=== PATIENT | female | born 1955 | race Caucasian/White ===

== ENCOUNTER 2017-10-16 09:27 | Outpatient (CLI) | payer BC | END 2017-10-16 09:28 | disposition home or self-care (01) | LOC: BICMAMMO 09:27 | PROVIDERS: ATTEND Internal Medicine | DX: Z12.31 Encounter for screening mammogram for malignant neoplasm of breast (principal); Z13.820 Encounter for screening for osteoporosis; M85.88 Other specified disorders of bone density and structure, other site; Z98.82 Breast implant status; Z80.3 Family history of malignant neoplasm of breast | CPT/HCPCS: 77063; 77067; 77080 ==

== ENCOUNTER 2019-01-07 08:12 | Outpatient (CLI) | payer BC ==
--- NOTE | 2019-01-07 08:53 | MMO ---
Bilateral MAMMO Bilat Screen [facility]. CLINICAL HISTORY: Patient is 63 years old and is seen for screening. The patient has no family history of breast cancer. The patient has no personal history of cancer. VIEWS: The views performed were: bilateral craniocaudal with tomosynthesis and bilateral mediolateral oblique with tomosynthesis. This study has been interpreted with the assistance of computer-aided detection. MAMMOGRAM FINDINGS: There are scattered fibroglandular densities. Finding 1: There are stable benign appearing calcifications seen in both breasts. Finding 2: Normal implants are present. There are no suspicious masses, suspicious calcifications, or new areas of architectural distortion. IMPRESSION: THERE IS NO MAMMOGRAPHIC EVIDENCE OF MALIGNANCY. A ROUTINE FOLLOW-UP MAMMOGRAM IN 1 YEAR IS RECOMMENDED. THE RESULTS OF THIS EXAM WERE SENT TO THE PATIENT. ACR BI-RADS Category 2 - Benign finding MAMMOGRAPHY NOTE: 1. A negative mammogram report should not delay a biopsy if a dominant of clinically suspicious mass is present. 2. Approximately 10% to 15% of breast cancers are not detected by mammography. 3. Adenosis and dense breasts may obscure an underlying neoplasm. Reported by: JACOBO CORTEZ MD Electonically Signed: [id number]
== END 2019-01-07 08:13 | disposition home or self-care (01) ==
LOC: BICMAMMO 08:12
PROVIDERS: ATTEND Internal Medicine
DX: Z12.31 Encounter for screening mammogram for malignant neoplasm of breast (principal)
CPT/HCPCS: 77063; 77067

== ENCOUNTER 2019-08-08 06:35 | Outpatient (CLI) | payer BC, OTHER ==
[2019-08-08 11:31] VITALS: BMI 21.9
[2019-08-08 14:01] LABS: Hemoglobin 14.3 g/dL (12.0-16.0); Mean Corpuscular HGB CONC 32.4 g/dL (32.0-36.0); Mean Corpuscular Hemoglobin 29.1 pg (27.0-31.0); Mean Corpuscular Volume 89.7 fL (78.0-98.0); Mean Platelet Volume 8.4 fL (7.4-10.4); Platelet Count 214 thou/uL (130-400); RBC Distribution Width 11.4 % (11.5-14.5); White Blood Cell (WBC) Count 6.5 thou/uL (4.8-10.8)
== END 2019-08-08 06:36 | disposition home or self-care (01) ==
LOC: LABBT 06:35
PROVIDERS: ATTEND Obstetrics & Gynecology
DX: Z01.812 Encounter for preprocedural laboratory examination (principal); N81.10 Cystocele, unspecified; N81.6 Rectocele
CPT/HCPCS: 85027

== ENCOUNTER 2019-08-11 05:54 | Observation (INO) | payer BC, OTHER ==
[2019-08-08 17:52] LABS: SARS-CoV-2 MS2 Positive; SARS-CoV-2 N Gene Negative; SARS-CoV-2 S Gene Negative; SARS-CoV-2 orf1ab Negative
[2019-08-11] MEDS ORDERED: Lidocaine 1% w/Epinephrine 1:100K 20 ML VIAL ONE (06:22)
--- NOTE | 2019-08-11 06:22 | HP ---
HISTORY OF PRESENT ILLNESS: Ms. Whitlock is a 64-year-old white female with previous hysterectomy, who has been having increasing symptoms of pelvic prolapse. She is noticing vaginal bulging which worsens with prolonged standing and also some difficulty emptying her urine necessitating forward positioning. She is noted to have significant cystocele and rectocele and wanted to proceed with surgical correction. She denies any stress incontinence related issues. PAST MEDICAL HISTORY AND PAST SURGICAL HISTORY: She has had breast augmentation and hysterectomy with ovaries remaining in situ. FAMILY HISTORY: Breast cancer in mother, and leukemia. Father had heart disease and diabetes. CURRENT MEDICATIONS: None. SOCIAL HISTORY: Nonsmoker. No excessive alcohol use. OB HISTORY: She had 2 spontaneous vaginal deliveries. ALLERGIES: SHE HAS NO KNOWN DRUG ALLERGIES. PHYSICAL EXAMINATION: VITAL SIGNS: Height 5 feet 4 inches, weight 129, BMI 22. Blood pressure 120/72, pulse 80 and regular, O2 saturation on room air was 96%. HEENT: Within normal limits. CHEST: Clear to auscultation. HEART: Regular rate and rhythm. S1 and S2 heart sounds. No murmurs, rubs, or gallops. ABDOMEN: Soft, nontender, and nondistended with no palpable masses. PELVIC: No vulvar or vaginal lesions noted. She does have grade 2 cystocele and grade 2 rectocele. The upper vaginal vault appears adequately supported. ASSESSMENT: A 64-year-old white female with grade 2 cystocele and rectocele concurrently and incomplete uterovaginal prolapse. PLAN: Plan is to proceed with anterior and posterior repair scheduled for 08/11/2019. Risks and benefits of procedure were discussed in detail. She is set for surgery. Job ID: [id number]
[2019-08-11] MEDS ORDERED: Fentanyl 100 MCG/2 ML VIAL ONE ×2 (06:37→09:02)
[2019-08-11] MEDS ORDERED: Midazolam HCl 2 mg/2 ml Vial ONE (07:09)
[2019-08-11] MEDS ORDERED: Simethicone Chewable 80 MG TAB PO PRN (08:41)
[2019-08-11] MEDS ORDERED: Morphine 2 MG/ML SYRINGE SLOW IVP PRN (08:41)
[2019-08-11] MEDS ORDERED: diphenhydrAMINE 25 MG CAP PO PRN (08:41)
[2019-08-11] MEDS ORDERED: traMADol HCl 50 MG TAB PO PRN ×2 (08:41)
[2019-08-11] MEDS ORDERED: Ondansetron PF 4 MG/2 ML Vial IVP PRN (08:41)
[2019-08-11] MEDS ORDERED: Bisacodyl 10 MG SUPP PR PRN (08:41)
[2019-08-11] MEDS ORDERED: Promethazine HCl 25 MG/ML VIAL IM PRN (08:41)
[2019-08-11] MEDS ORDERED: Zolpidem Tartrate 5 MG TAB PO PRN (08:41)
[2019-08-11] MEDS ORDERED: Loratadine 10 MG TAB PO PRN ×2 (08:49→09:05)
[2019-08-11] MEDS ORDERED: Acetaminophen 500 MG TAB PO PRN ×2 (08:49→09:03)
[2019-08-11] MEDS ORDERED: [UNRECOGNIZED DRUG - MIXTURE] PO PRN (08:49)
[2019-08-11] MEDS ORDERED: [UNRECOGNIZED DRUG - OTHER] PO SCH (09:00)
[2019-08-11] MEDS ORDERED: Non-Formulary Item 1 EACH (Multivitamin/Iron/Folic Acid [Centrum Complete Multivitamin] 1 PO SCH (09:00)
[2019-08-11] MEDS ORDERED: VIT D3 PO SCH (09:00)
[2019-08-11] MEDS ORDERED: CALCIUM PHOSPHATE TRIB PO SCH (09:00)
[2019-08-11] MEDS ORDERED: Metamucil PACK PO PRN (09:07)
--- NOTE | 2019-08-11 10:10 | OP ---
DATE OF PROCEDURE: 08/11/2019 PREOPERATIVE DIAGNOSIS: A 64-year-old white female with prior hysterectomy with symptomatic grade 3 cystocele and grade 3 rectocele. POSTOPERATIVE DIAGNOSIS: A 64-year-old white female with prior hysterectomy with symptomatic grade 3 cystocele and grade 3 rectocele. PROCEDURE PERFORMED: Anterior-posterior repair. PATIENT ACCOUNTS MANAGER SURGEON: Kristal Buckner PA-C ANESTHESIA: General endotracheal. ESTIMATED BLOOD LOSS: Less than 25 mL. COMPLICATIONS: None. COUNTS: Correct x2. ANTIBIOTICS: 2 g Ancef. ON-CALL: To OR. FINDINGS: 1. Postoperatively, clear urine present in Schuster catheter. 2. Postprocedure rectal exam showed no evidence of any suture placement in the rectal mucosa. 3. She had some attenuated posterior vaginal and endopelvic fascia noted. DISPOSITION: To recovery room and then to the floor. DESCRIPTION OF PROCEDURE: The patient previously received informed consent in regard to surgery. She was taken back to the operating room, where she received a general endotracheal anesthetic agent without complications. She was placed in dorsal lithotomy position after general endotracheal intubation had been performed. She was prepped and draped in usual sterile fashion. Schuster catheter was placed. At this time, an exam under anesthesia showed the anterior cystocele. The vaginal cuff line was grasped with 2 Allis clamps. The anterior vaginal mucosa was then infiltrated with 1% lidocaine with epinephrine. An incision at the middle of the edge of the cuff was made and this was dissected up to approximately 1 cm from the urethral meatus under the mucosa. The cystocele was then dissected both sharply and bluntly reducing the cystocele defect. At this time, a 2-0 Vicryl suture was then utilized to close the cystocele defect with plication of the endopelvic fascia starting most approximately with [id number] sutures, plicating the endopelvic fascia, reducing the cystocele. This was carried out towards the cuff line. Once this had been completed, the excess vaginal mucosa was trimmed and the vaginal mucosa was closed with interrupted 2-0 Vicryl sutures incorporating some endopelvic fascia to rid the space. Hemostasis was confirmed. Attention was turned to the posterior repair. The vaginal mucosa at the 4 and 8 o'clock position of the vaginal introitus were grasped with 2 Allis clamps. The posterior vaginal mucosa was infiltrated with 1% lidocaine with epinephrine up to the cuff line. A posterior midline incision was made at the introitus with Metzenbaum scissors. The vaginal mucosa was then incised up to the cuff line and the edges of the vaginal mucosa were grasped by my entry level marketing assistant with Allis clamps to aid with retraction and countertraction. The endopelvic fascia was then dissected away from the vaginal mucosa reducing the rectocele defect. There appeared to be a very large endopelvic fascia tear mostly on the patient's right lateral pelvic vaginal wall. An additional glove was placed on my left hand and this enabled me to grasp the upper edge of the endopelvic fascia on the patient's right side and also the fascia. Another Allis clamp was placed on the edge on the patient's left side. The dirty glove was then removed. With exposure by aid of my entry level marketing assistant, was able to grasp the upper edge of the vaginal endopelvic fascia, plicating this with an interrupted suture of 0 Vicryl. I then worked my way from the most proximal cephalad to with the caudal entry of the introitus region and plicating the endopelvic fascia with 0 Vicryl sutures. The patient's right side of the endopelvic fascia was somewhat attenuated, but we were able to grasp this and close off the rectocele defect. Once this had been accomplished, additional sutures were placed working most caudally then backed cephalad to reinforce the suture line. Hemostasis was confirmed. At this time, another exam was performed and no evidence of any rectal mucosal sutures were noted. The dirty glove was removed. The excessive vaginal mucosa was trimmed. The vaginal mucosa was then plicated with interrupted [id number] sutures incorporating some endopelvic fascia starting most proximal working towards the introitus. Hemostasis was confirmed. We then packed the vaginal mucosa with a moistened Kerlix and the patient was awakened from anesthesia and transferred to recovery room in stable condition. Job ID: [id number]
[2019-08-11 10:36] VITALS: BMI 21.2
[2019-08-11] MEDS ORDERED: Ketorolac Tromethamine 30 MG/ML VIAL IVP SCH (12:00)
[2019-08-11] MEDS ORDERED: Ketorolac Tromethamine 30 MG/ML VIAL ONE (12:16)
[2019-08-11] MEDS ORDERED: Lidocaine 1% PF 5 ML VIAL ONE (12:16)
[2019-08-11] MEDS ORDERED: Ondansetron PF 4 MG/2 ML Vial ONE (12:16)
[2019-08-11] MEDS ORDERED: Dexamethasone 20 MG/5 ML VIAL ONE (12:16)
[2019-08-11] MEDS ORDERED: PROPOFOL 200 MG/20 ML VIAL ONE (12:16)
[2019-08-11] MEDS ORDERED: Ibuprofen 800 MG TAB PO SCH (14:00)
[2019-08-11] MEDS: Ketorolac Tromethamine 30 MG/ML VIAL IVP SCH ×2 (15:19→21:31)
[2019-08-11] MEDS: Ibuprofen 600 MG TAB PO SCH ×2 (17:46→21:40)
[2019-08-12] MEDS: Ibuprofen 600 MG TAB PO SCH (06:01)
[2019-08-12] MEDS: Ketorolac Tromethamine 30 MG/ML VIAL IVP SCH (06:46)
--- NOTE | 2019-08-12 07:44 | PDOC.EVN ---
Event Note - Event Note Event Note: S: Good pain control with oral ibuprofen. No nausea or vomiting. Schuster out. has not voided yet. O:AFVSS perineum intact/hemostatic. A/P post op day from A&P...Voiding trial. If does well, discharge today...
[2019-08-12] MEDS ORDERED: Calcium Carbonate 600 MG + Vit D TAB PO SCH (09:00)
[2019-08-12] MEDS ORDERED: Multivit, Therapeutic 1 TAB PO SCH (09:00)
[2019-08-12 11:35] VITALS: BP 95/50; TEMP 98.2
--- NOTE | 2019-08-13 03:17 | DIS ---
DATE OF ADMISSION: 08/11/2019 DATE OF DISCHARGE: 08/12/2019 DIAGNOSIS: Cystocele with rectocele. PROCEDURE PERFORMED: Anterior and posterior repair. SUMMARY OF HOSPITAL COURSE: Ms. Whitlock is a 64-year-old white female with prior hysterectomy and symptomatic pelvic prolapse with a grade 2 to 3 cystocele and rectocele. She underwent anterior and posterior repair on August 11, 2019. Postoperatively, the patient has done well. Vital signs remained stable. She has had good pain control with opee-[id number]-huxfaze ibuprofen and was ambulating and voiding without difficulty in the morning of postop day #1. She was discharged home and to follow up on August 26 as scheduled. She is to resume her maintenance medications for other chronic medical conditions. Job ID: [id number]
== END 2019-08-12 12:17 | disposition home or self-care (01) ==
LOC: SDC 05:54 → 3SE 08:36 → SDC 18:49 → 3SE 18:50
PROVIDERS: ADMIT Obstetrics & Gynecology; ATTEND Obstetrics & Gynecology
PROC: 0JQC0ZZ Repair Pelvic Region Subcutaneous Tissue and Fascia, Open Approach (ICD-10-PCS; principal; 2019-08-11)
PROC: 0JQC0ZZ Repair Pelvic Region Subcutaneous Tissue and Fascia, Open Approach (ICD-10-PCS; 2019-08-11)
DX: N81.10 Cystocele, unspecified (principal); N81.6 Rectocele; N81.89 Other female genital prolapse; Z90.710 Acquired absence of both cervix and uterus
CPT/HCPCS: 36415; 86850; 86900; 86901; 87635; 96372; 96374; 96375; G0378; J0690; J1100; J1885; J2001; J2250; J2270; J2405; J2550; J2704; J3010; U0003

== ENCOUNTER 2020-01-23 15:11 | Outpatient (CLI) | payer BC ==
--- NOTE | 2020-01-23 16:21 | MMO ---
Bilateral MAMMO Bilat Screen [facility]. CLINICAL HISTORY: Patient is 64 years old and is seen for screening. The patient has no family history of breast cancer. The patient has no personal history of cancer. The patient has a history of bilateral Implants in 1991. VIEWS: The views performed were: bilateral craniocaudal; bilateral mediolateral oblique; and bilateral Implant displaced with tomosynthesis. FILMS COMPARED: The present examination has been compared to prior imaging studies performed at [facility] on 07/30/2015, 09/21/2016, 10/16/2017 and 01/07/2019. This study has been interpreted with the assistance of computer-aided detection. MAMMOGRAM FINDINGS: There are scattered fibroglandular densities. Finding 1: There are stable benign appearing calcifications seen in both breasts. Finding 2: Normal implants are present. There are no suspicious masses, suspicious calcifications, or new areas of architectural distortion. IMPRESSION: THERE IS NO MAMMOGRAPHIC EVIDENCE OF MALIGNANCY. A ROUTINE FOLLOW-UP MAMMOGRAM IN 1 YEAR IS RECOMMENDED. THE RESULTS OF THIS EXAM WERE SENT TO THE PATIENT. ACR BI-RADS Category 2 - Benign finding MAMMOGRAPHY NOTE: 1. A negative mammogram report should not delay a biopsy if a dominant of clinically suspicious mass is present. 2. Approximately 10% to 15% of breast cancers are not detected by mammography. 3. Adenosis and dense breasts may obscure an underlying neoplasm. Reported by: STEVE OROSCO MD Electonically Signed: [id number]
== END 2020-01-23 15:12 | disposition home or self-care (01) ==
LOC: BICMAMMO 15:11
PROVIDERS: ATTEND Internal Medicine
DX: Z12.31 Encounter for screening mammogram for malignant neoplasm of breast (principal); Z98.82 Breast implant status
CPT/HCPCS: 77063; 77067

== ENCOUNTER 2021-03-15 14:54 | Outpatient (CLI) | payer BC | END 2021-03-15 14:55 | disposition home or self-care (01) | LOC: BICMAMMO 14:54 | PROVIDERS: ATTEND Internal Medicine | DX: Z12.31 Encounter for screening mammogram for malignant neoplasm of breast (principal); M81.0 Age-related osteoporosis without current pathological fracture; Z98.82 Breast implant status | CPT/HCPCS: 77063; 77067; 77080 ==

== ENCOUNTER 2021-10-07 07:58 | Outpatient (CLI) | payer BC | END 2021-10-07 07:59 | disposition home or self-care (01) | LOC: BICRAD 07:58 | PROVIDERS: ATTEND Internal Medicine Rheumatology | DX: M81.0 Age-related osteoporosis without current pathological fracture (principal); M47.27 Other spondylosis with radiculopathy, lumbosacral region; M54.31 Sciatica, right side; M47.816 Spondylosis without myelopathy or radiculopathy, lumbar region; M48.07 Spinal stenosis, lumbosacral region; M41.9 Scoliosis, unspecified | CPT/HCPCS: 72072; 72110 ==

== ENCOUNTER 2022-04-21 11:52 | Outpatient (CLI) | payer MEDICARE, OTHER | END 2022-04-21 11:53 | disposition home or self-care (01) | LOC: BICMAMMO 11:52 | PROVIDERS: ATTEND Internal Medicine | DX: Z12.31 Encounter for screening mammogram for malignant neoplasm of breast (principal); Z80.3 Family history of malignant neoplasm of breast; Z98.82 Breast implant status | CPT/HCPCS: 77063; 77067 ==

== ENCOUNTER 2022-12-19 13:38 | Outpatient (CLI) | payer MEDICARE, OTHER | END 2022-12-19 13:39 | disposition home or self-care (01) | LOC: BICMAMMO 13:38 | PROVIDERS: ATTEND Internal Medicine | DX: N63.20 Unspecified lump in the left breast, unspecified quadrant (principal) | CPT/HCPCS: 76642; 77065; G0279 ==